=== PATIENT | male | born 1955 | race Caucasian/White ===

== ENCOUNTER 2021-06-26 04:30 | Day surgery (SDC) | payer OTHER ==
[2021-06-23 11:12] VITALS: BMI 19.5
[2021-06-26] MEDS ORDERED: MIDAZOLAM HCL 2 MG/2 ML SINGLE DOSE VIAL ONE ×2 (09:29→09:41)
[2021-06-26 10:30] VITALS: TEMP 98
[2021-06-26] MEDS ORDERED: diphenhydrAMINE HCL 25 MG CAPSULE (FP) PO ONE ×2 (10:56→11:15)
[2021-06-26 12:23] VITALS: BP 121/80; PULSE 57
== END 2021-06-26 12:00 | disposition home or self-care (01) ==
LOC: JASU-SURG 04:30
PROVIDERS: ATTEND Urology
PROC: 0TF4XZZ Fragmentation in Left Kidney Pelvis, External Approach (ICD-10-PCS; principal; 2021-06-26 10:00)
DX: N20.0 Calculus of kidney (principal)